=== PATIENT | female | born 1930 | race Caucasian/White ===

== ENCOUNTER 2016-12-24 10:15 | Emergency (ER) | payer MEDICARE ==
[~2016-12-24] VITALS: Ht 170.2 cm; Wt 65.8 kg
[~2016-12-24 10:15] MED LIST: AC325T PO; ASP81CT PO; BACI1CAP4 PO; CALC-671 PO; CARV3.12T PO; CEFD300C PO; DEXT1DRO7 OU; FAMO-107 PO; FERR-54 PO; FLUO10CA29 PO; FRSM40T PO; GUAI-585 PO; HYDR25SU8 RC; IPRA3AMP11 INH; LOPE2CAP29 PO; LOPE2TAB34 PO; LSNP10T PO; MIRT30TA6 PO; OMEP20CA12 PO; OMEP40CA36 PO; OMG1KC PO; POTA-57 PO; POTA10TA10 PO; RANI150T15 PO; SMV20T PO; VITA1CAP PO; [UNRECOGNIZED DRUG - CODE] PO
--- OUTSIDE RECORDS SUMMARY | 2016-12-24 10:22 | XMS REPORT ---
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 Encounters Encounter Diagnosis No relevant problems exist. Plan of Care Procedures No relevant procedures performed. Immunizations No immunizations administered or ordered. Hospital Course Hospital Discharge Instructions Allergies, Adverse Reactions, Alerts Milk causes Nausea.Latex Allergy has not been assessed.IV Contrast Allergy has not been assessed. Medication Medication reconciliation has not been performed.
--- NOTE | 2016-12-24 11:47 | NUR ---
Patient rounds: Patient is resting quietly with eyes closed.
[2016-12-24] MEDS ORDERED: TRM50T PO (12:06)
--- NOTE | 2016-12-24 12:21 | NUR ---
Report given to Leigha at [facility]. Patient ready for transportation back to facility.
[2016-12-24 12:22] VITALS: BP 130/55
--- NOTE | 2016-12-24 12:51 | Diagnostic Imaging Report ---
EXAMINATION: Three views of the left ribs. INDICATION: Left rib pain. FINDINGS: These three views of the left sided ribs demonstrate no evidence of an acute or displaced left-sided rib fracture. Prior kyphoplasty changes are noted. There are multilevel degenerative endplate changes present throughout the thoracic spine. IMPRESSION: 1. No radiographic evidence of acute or displaced left-sided rib fracture. Dictated by: Dictated on workstation # [id number]
--- NOTE | 2016-12-24 13:09 | Diagnostic Imaging Report ---
PA and lateral chest compared to prior study from February 03, 2016. INDICATION: Chest pain. FINDINGS: Enlargement of the cardiac silhouette but no evidence to suggest failure. There is no focal pulmonary consolidation. There is some mild left base atelectasis. There is no effusion. There is no pneumothorax. Mediastinal contours appear unchanged. Patient is status post previous lower thoracic kyphoplasty. There are remote appearing right-sided ninth and tenth posterior rib fractures. IMPRESSION: 1. Enlarged cardiac silhouette without evidence of failure. No acute cardiopulmonary process demonstrated. 2. Remote appearing right posterior rib fractures unchanged from previous exam. A previous thoracic kyphoplasty is also noted. No acute osseous abnormalities are demonstrated. Dictated by: Dictated on workstation # [id number]
== END 2016-12-24 12:39 | disposition home or self-care (01) ==
LOC: EDUNIT# 10:15 → ED 10:17
DX: S20.222A Contusion of left back wall of thorax, initial encounter (principal); W01.198A Fall on same level from slipping, tripping and stumbling with subsequent striking against other object, initial encounter; Y92.129 Unspecified place in nursing home as the place of occurrence of the external cause
CPT/HCPCS: 71020; 71100; 99282; A9270; 99283

== ENCOUNTER → 2017-01-19 | Outpatient (CLI) | payer MEDICARE ==
[~2017-01-19] MED LIST changes: +TRM50T PO
--- NOTE | 2017-01-19 17:32 | Diagnostic Imaging Report ---
INDICATION: Osteoporosis, fall, back pain, history of kyphoplasty. COMPARISON: Chest 12/24/16. FINDINGS: Three views of the thoracic column demonstrate kyphoplasty changes at the thoracolumbar junction. No new compression fracture is seen. There is no traumatic malalignment. IMPRESSION: No new fracture or traumatic malalignment. Dictated by: Dictated on workstation # [id number]
== END ==
LOC: RAD 16:25
PROVIDERS: ATTEND Nurse Practitioner Family
DX: M54.6 Pain in thoracic spine (principal)
CPT/HCPCS: 72072

== ENCOUNTER → 2017-02-02 | Outpatient (REF) | payer MEDICARE ==
[2017-02-02 16:30] LABS: MEAN CORPUSCULAR HEMOGLOBIN 27.1 PG (26.0-34.0); MEAN CORPUSCULAR VOLUME 86 FL (80-100); MEAN PLATELET VOLUME 12.8 FL (6.0-9.5); PLATELET COUNT 169 10^3uL (150-450); WHITE BLOOD COUNT 12.22 10^3uL (4.0-11.0)
[2017-02-02 16:33] LABS: MEAN CORPUSCULAR HGB CONC 31.5 g/dL (31.0-37.0)
[2017-02-02 16:55] LABS: BAND NEUTROPHILS % 0 % (0-6); EOSINOPHILS % 1 % (0-4); MONOCYTES # 2.8 #; MONOCYTES % 23 % (3-11); SEGMENTED NEUTROPHILS % 45 % (51-67)
[2017-02-02 16:56] LABS: LYMPHOCYTES # 3.3 #; TOTAL CELLS COUNTED 100
[2017-02-02 16:57] LABS: ANISOCYTOSIS SLIGHT; POLYCHROMASIA SLIGHT; RBC MORPH SEE REFERENCE (NORMAL)
[2017-02-02 16:58] LABS: ALBUMIN 3.8 g/dL (3.4-5.0); ANION GAP 16.1 MEQ/L (3-15); CALCULATED IONIZED CALCIUM 4.2 mg/dL (3.8-4.6); POIKILOCYTOSIS SLIGHT; TOTAL PROTEIN 6.8 g/dL (6.4-8.5)
== END ==
LOC: LAB 15:37
PROVIDERS: ATTEND Family Medicine
DX: D50.9 Iron deficiency anemia, unspecified (principal); I50.42 Chronic combined systolic (congestive) and diastolic (congestive) heart failure; I25.10 Atherosclerotic heart disease of native coronary artery without angina pectoris
CPT/HCPCS: 80053; 85025